=== PATIENT | female | born 1975 | race Caucasian/White ===

== ENCOUNTER 2018-06-04 21:20 | Emergency (ER) | payer OTHER ==
[~2018-06-04] VITALS: Ht 152.4 cm; Wt 85.3 kg
[2018-06-05] MEDS ORDERED: LIDOCAINE 1% HCL (LOCAL ANESTH.) INJ 20ML MDV IJ ONE (03:15)
[2018-06-05] MEDS ORDERED: TETANUS-DIPTH-ACEL PERTUSSIS 0.5ML SYRG IM ONE (03:30)
[2018-06-05 03:31] VITALS: BP 135/82
== END 2018-06-05 03:55 | disposition home or self-care (01) ==
LOC: ER 21:22
DX: S51.812A Laceration without foreign body of left forearm, initial encounter (principal); W26.9XXA Contact with unspecified sharp object(s), initial encounter; Y93.89 Activity, other specified; Y99.8 Other external cause status; Y92.89 Other specified places as the place of occurrence of the external cause
CPT/HCPCS: 12001; 90471; 90715; 99283; J2001